=== PATIENT | female | born 1960 ===

== ENCOUNTER 2019-10-18 12:56 | Outpatient (CLI) | payer MEDICAID ==
[~2019-10-18] VITALS: Ht 157.5 cm; Wt 59.0 kg
[2019-10-18] MEDS ORDERED: NEXIUM40 MG ORAL (15:58)
[2019-10-18] MEDS ORDERED: CYMBALTA60 MG ORAL (15:58)
--- NOTE | 2019-10-18 22:45 | Consultation ---
DATE OF CONSULTATION: 10/18/2019 CONSULTING PHYSICIAN: Carlos Vaca M.D. CHIEF COMPLAINT: Abdominal pain. HISTORY OF PRESENT ILLNESS: This is a very complicated 58-year-old female with numerous complaints including abdominal pain, GERD, diarrhea, rectal bleeding, nausea, vomiting, bloating, and this has been going on for long time. She has also been diagnosed of IBS and questionable colitis. According to her, she had a colonoscopy in 2018, which I do not have the records. She was told that she has colitis and ulceration in the intestine. Currently, she is not taking any medication for that. Apparently at one point, she was on Nexium. PAST MEDICAL HISTORY: 1. IBS. 2. Hemorrhoids. 3. Depression. 4. Colitis. 5. Peptic ulcer disease. PAST SURGICAL HISTORY: 1. Tubal ligation. 2. Two foot surgeries. MEDICATIONS: Cymbalta, Nexium. FAMILY HISTORY: Noncontributory. SOCIAL HISTORY: Patient drinks wine maybe 2 cups per week. Denies any alcohol, quit 30 years ago. ALLERGIES: No known drug allergies. REVIEW OF SYSTEMS: As dictated in HPI. PHYSICAL EXAMINATION: VITAL SIGNS: The patient's height is 5 feet 2 inches. Weight is 130. HEENT: Normocephalic and atraumatic. Sclerae anicteric. NECK: Supple. No evidence of obvious lymphadenopathy. CARDIOVASCULAR: Regular rate and rhythm. Plus S1 and S2. LUNGS: Clear to auscultation bilaterally. ABDOMEN: Positive bowel sounds. Soft and nontender. No rebound. No guarding. No peritoneal sign. EXTREMITIES: No cyanosis. No clubbing. No edema. ASSESSMENT AND PLAN: This is a 58-year-old female with numerous complaints. The one that is concerning is that she has history of possible gastric ulceration and evidence of colitis and now has multiple BMs watery and bleeding. Patient will need an endoscopy and colonoscopy. The procedure was explained to her. She already had one and she knows what to do with and what to expect. We will try to schedule her for endoscopy and colonoscopy when authorization is obtained. Carlos Vaca M.D. DR: SHIVAM JOB#: [id number] CC:
== END 2019-10-18 14:56 | disposition home or self-care (01) ==
LOC: PAN 12:56
DX: R10.9 Unspecified abdominal pain (principal); K21.9 Gastro-esophageal reflux disease without esophagitis; R19.7 Diarrhea, unspecified; R11.2 Nausea with vomiting, unspecified; R14.0 Abdominal distension (gaseous); K58.9 Irritable bowel syndrome, unspecified; F32.9 Major depressive disorder, single episode, unspecified; Z87.11 Personal history of peptic ulcer disease; Z79.899 Other long term (current) drug therapy; K62.5 Hemorrhage of anus and rectum

== ENCOUNTER 2020-05-04 14:10 | Outpatient (CLI) | payer MEDICAID ==
[~2020-05-04 14:10] MED LIST: CYMBALTA60 MG ORAL; NEXIUM40 MG ORAL
--- NOTE | 2020-05-04 15:37 | General Progress Note ---
Subjective ROS Limited/Unobtainable: Yes Allergies: Coded Allergies: No Known Allergies (Unverified , 10/18/19) Objective General Appearance: alert EENT: normal ENT inspection Neck: supple Cardiovascular: normal rate Respiratory/Chest: decreased breath sounds Abdomen: normal bowel sounds, non tender, soft Extremities: non-tender Assessment/Plan Assessment/Plan: 1. IBS. 2. Hemorrhoids. 3. Depression. 4. Colitis. 5. Peptic ulcer disease. 6. Rectal bleed patient has rectal bleed needs EGD and colonoscopy will schedule Carlos Vaca MD May 04, 2020 15:37
== END 2020-05-04 16:10 | disposition home or self-care (01) ==
LOC: PAN 14:10
DX: K58.9 Irritable bowel syndrome, unspecified (principal); K64.9 Unspecified hemorrhoids; F32.9 Major depressive disorder, single episode, unspecified; K52.9 Noninfective gastroenteritis and colitis, unspecified; K27.9 Peptic ulcer, site unspecified, unspecified as acute or chronic, without hemorrhage or perforation; K62.5 Hemorrhage of anus and rectum
CPT/HCPCS: 99212